=== PATIENT | male | born 1965 | race Caucasian/White ===

== ENCOUNTER 2025-08-05 07:46 | Outpatient (CLI) | payer BC | END 2025-08-05 07:47 | disposition home or self-care (01) | LOC: CT 07:46 | PROVIDERS: ATTEND Orthopaedic Surgery | DX: M54.16 Radiculopathy, lumbar region (principal); M54.50 Low back pain, unspecified; M48.061 Spinal stenosis, lumbar region without neurogenic claudication; M48.07 Spinal stenosis, lumbosacral region | CPT/HCPCS: 72131; 72148 ==